=== PATIENT | male | born 1960 | race African-American/Black ===

== ENCOUNTER 2020-09-07 11:24 | Emergency (ER) | payer OTHER ==
[~2020-09-07] VITALS: Ht 172.7 cm; Wt 70.0 kg
[2020-09-07 12:27] LABS: HEMOGLOBIN 9.1 g/dl (14.0-18.0); IMMATURE GRANULOCYTES 0.1 % (0.0-5.0); MEAN CELL VOLUME 90.1 fL CALC (80.0-100.0); MEAN CORPUSCULAR HGB 28.3 pG CALC (26.0-32.0); MEAN CORPUSCULAR HGB CONC 31.4 g/dL CAL (32.0-36.0); NEUT# 5.94 thou/uL (1.82-7.42); RED BLOOD COUNT 3.22 mill/uL (4.70-6.10); RED CELL DISTRI WIDTH 13.1 % (11.5-15.5)
[2020-09-07] MEDS ORDERED: AMLODIPINE BESYL5 MG PO (12:34)
[2020-09-07] MEDS ORDERED: HYDROCHLOROT25 MG PO (12:34)
[2020-09-07] MEDS ORDERED: ASPIRIN81 MG PO (12:35)
[2020-09-07 12:42] LABS: ACT PARTIAL THROMBO TIME 25.9 SECONDS (20.0-32.5); ALBUMIN 3.6 g/dL (3.2-5.0); ALKALINE PHOSPHATASE 360 u/l (38-126); AMYLASE 68 u/l (30-110); ANION GAP 14 (6-22 (CALC)); BILIRUBIN, TOTAL 0.9 mg/dL (0.0-1.4); BUN 6 mg/dL (9-20); BUN/CREATININE RATIO 12 (12-20 (CALC)); CARBON DIOXIDE 24 mmol/l (22-30); CHLORIDE 103 mmol/l (95-108); CREATININE 0.5 mg/dL (0.7-1.3); GFR > 60 ML/MIN (>=60 (CALC)); GFR FOR AFR.AMER. > 60 ML/MIN (>=60 (CALC)); INTERNATIONAL NORMALIZED RATIO 1.3 RATIO (0.7-1.3); LIPASE 135 u/l (23-300); POTASSIUM 3.4 mmol/l (3.5-5.1); PROTHROMBIN TIME 13.5 SECONDS (9.0-12.5); SGOT/AST 70 u/l (17-59); SODIUM 137 mmol/l (137-146); TOTAL PROTEIN 8.3 g/dL (6.3-8.2)
[2020-09-07 13:08] LABS: URINE BILIRUBIN - DIPSTICK NEGATIVE (NEGATIVE); URINE BLOOD DIPSTICK TRACE-INTACT (NEGATIVE); URINE COLOR YELLOW; URINE GLUCOSE - DIPSTICK NEGATIVE (NEGATIVE); URINE KETONE NEGATIVE (NEGATIVE); URINE LEUK ESTERASE NEGATIVE (NEGATIVE); URINE PROTEIN - DIPSTICK NEGATIVE (NEG-TRACE); URINE SPECIFIC GRAVITY 1.015; URINE UROBILINOGEN - DIPSTICK 0.2 E.U./dL (0.2)
[2020-09-07 13:10] LABS: URINE NITRITE - DIPSTICK NEGATIVE (Negative)
[2020-09-07 14:32] VITALS: BP 158/94
== END 2020-09-07 14:32 | disposition short-term general hospital (02) | DRG 442 ==
LOC: ED 11:24
PROVIDERS: Emergency Medicine
DX: I81 Portal vein thrombosis (principal); C78.7 Secondary malignant neoplasm of liver and intrahepatic bile duct; K92.1 Melena; C80.1 Malignant (primary) neoplasm, unspecified; I10 Essential (primary) hypertension; B19.20 Unspecified viral hepatitis C without hepatic coma
CPT/HCPCS: J1644; Q9967